=== PATIENT | female | born 2000 | race African-American/Black ===

== ENCOUNTER 2025-05-24 09:07 | Emergency (ER) | payer OTHER ==
[~2025-05-24] VITALS: Ht 160 cm; Wt 79.2 kg
[2025-05-24 09:11] VITALS: TEMP 97.4
[2025-05-24] MEDS ORDERED: AZIT500T5 (09:16)
[2025-05-24 10:01] VITALS: BP 125/77; O2SAT 99
[2025-05-24] MEDS ORDERED: DOXY100C3 PO (11:13)
== END 2025-05-24 11:29 | disposition home or self-care (01) ==
LOC: M ED 09:07
DX: N34.1 Nonspecific urethritis (principal); Z79.2 Long term (current) use of antibiotics; Z88.0 Allergy status to penicillin

== ENCOUNTER 2025-06-24 07:44 | Emergency (ER) | payer OTHER ==
[~2025-06-24] VITALS: Ht 160 cm; Wt 78.8 kg
[~2025-06-24 07:44] MED LIST: AZIT500T5; DOXY100C3 PO
[2025-06-24 07:47] VITALS: TEMP 97.6
[2025-06-24 09:29] VITALS: O2SAT 100
[2025-06-24 09:30] VITALS: BP 118/75
[2025-06-24] MEDS ORDERED: DEBR6.5S4 AD (09:30)
== END 2025-06-24 10:16 | disposition home or self-care (01) ==
LOC: M ED 07:44
DX: H61.21 Impacted cerumen, right ear (principal); Z88.0 Allergy status to penicillin; Z79.899 Other long term (current) drug therapy

== ENCOUNTER 2025-07-18 05:31 | Emergency (ER) | payer OTHER ==
[~2025-07-18] VITALS: Ht 160 cm; Wt 76.4 kg
[~2025-07-18 05:31] MED LIST changes: +DEBR6.5S4 AD
[2025-07-18] MEDS ORDERED: AZIT-12 PO (06:53)
[2025-07-18 06:55] VITALS: BP 100/65; TEMP 97.2; O2SAT 99
== END 2025-07-18 07:00 | disposition home or self-care (01) ==
LOC: M ED 05:31
DX: H65.01 Acute serous otitis media, right ear (principal); Z79.2 Long term (current) use of antibiotics; Z79.899 Other long term (current) drug therapy; Z88.0 Allergy status to penicillin

== ENCOUNTER 2025-08-06 06:18 | Observation (INO) | payer OTHER ==
[~2025-08-06] VITALS: Ht 160 cm; Wt 75.8 kg
[2025-08-06] MEDS: ceFAZolin SOD 2 GM IV ONCE IV ONE (06:00)
[~2025-08-06 06:18] MED LIST changes: +AZIT-12 PO; +CLINDAMYCIN 900 MG in IV 1 EA IV ONE; +IBUP200C27 PO; +VITA100093 PO; +VITA1TAB61 PO; +[UNRECOGNIZED DRUG - CODE] PO
[2025-08-06] MEDS ORDERED: dexmedeTOMIDine (4 MCG/ML) 200 MCG/50 ML BTL As Ordered ONE (06:54)
[2025-08-06] MEDS ORDERED: dexAMETHasone 4 MG/ML 1 ML VIAL As Ordered ONE (06:54)
[2025-08-06] MEDS ORDERED: ONDANSETRON 4MG 2ML VIAL As Ordered ONE (06:54)
[2025-08-06] MEDS ORDERED: ROCURONIUM BROMIDE 50MG/5ML VIAL As Ordered ONE (06:54)
[2025-08-06] MEDS ORDERED: LIDOCAINE 2% 100 MG/5 ML SDV (FOR ANES.) As Ordered ONE (06:54)
[2025-08-06] MEDS ORDERED: SUGAMMADEX SODIUM 500 MG/5 ML VIAL As Ordered ONE (06:54)
[2025-08-06] MEDS ORDERED: MIDAZOLAM INJ 2 MG/2 ML VIAL As Ordered ONE (06:55)
[2025-08-06] MEDS: FAMOTIDINE 20 MG/2 ML VIAL IVP ONE (07:00)
[2025-08-06] MEDS: SCOPOLAMINE 1MG TRANSDERMAL PATCH TOP ONE (07:06)
[2025-08-06] MEDS: CLINDAMYCIN 900 MG/50 ML PREMIX BAG As Ordered ONE (07:59)
[2025-08-06] MEDS ORDERED: ACETAMINOPHEN 1000MG/100ML IV BAG As Ordered ONE (08:02)
[2025-08-06] MEDS: HEPARIN SOD 5000 UNITS/ML 1 ML VIAL/SYRINGE SQ ONE (08:10)
[2025-08-06] MEDS ORDERED: HYDROmorphone HCL 2 MG/ML 1 ML VIAL As Ordered ONE (09:03)
[2025-08-06] MEDS: GENTAMICIN SULF 80 MG/2 ML VIAL As Ordered ONE (09:11)
[2025-08-06] MEDS ORDERED: ACETAMINOPHEN 325 MG TAB PO PRN (12:45)
[2025-08-06] MEDS: HYDROMORPHONE HCL 0.5 MG/0.5 ML SYRINGE IV PRN (12:55)
[2025-08-06 13:47] VITALS: BP_SYST 115; BP_SYST 116; BP_DIAS 65; BP_DIAS 66; TEMP 98.1; O2SAT 100
[2025-08-06 14:00] VITALS: BP 115/65; TEMP 98.1; O2SAT 99
[2025-08-06] MEDS: ONDANSETRON 4MG 2ML VIAL IV PRN (14:27)
[2025-08-06] MEDS: MORPHINE 4 MG/ML 1 ML VIAL IV PRN (14:29)
[2025-08-06 14:30] VITALS: BP 118/68; TEMP 98.1; O2SAT 98
[2025-08-06] MEDS: LR 1,000 ML IV SCH (14:35)
[2025-08-06] MEDS: CLINDAMYCIN 900 MG in IV 1 EA IV ONE (14:38)
[2025-08-06] MEDS ORDERED: HOME MED LIST COMPLETE! XX SCH (14:40)
[2025-08-06 15:30] VITALS: BP 118/68; TEMP 98.1; O2SAT 98
[2025-08-06 16:30] VITALS: BP 120/84; TEMP 98.2; O2SAT 98
[2025-08-06] MEDS: PERCOCET 5MG/325MG TAB PO PRN (17:34)
[2025-08-06 21:24] VITALS: BP 118/56; TEMP 97.7; O2SAT 98
[2025-08-07 00:12] VITALS: BP 116/57; TEMP 98.4; O2SAT 97
[2025-08-07] MEDS: traMADol 50 MG TAB PO PRN (06:18)
[2025-08-07 06:23] LABS: PLATELET COUNT, AUTOMATED 205 10^3/uL (150-450)
[2025-08-07 06:41] VITALS: BP 109/74; TEMP 98.1; O2SAT 98
[2025-08-07 06:45] LABS: CALCIUM LEVEL 8.1 MG/DL (8.5-10.1); CARBON DIOXIDE LEVEL 25.0 MMOL/L (20-31); CHLORIDE LEVEL 107.0 MMOL/L (98-107); CREATININE FOR GFR 0.99 MG/DL (0.55-1.30); GLOMERULAR FILTRATION RATE 80.7 (>60); POTASSIUM SERUM 3.7 MMOL/L (3.5-5.1); SODIUM LEVEL 141.0 MMOL/L (136-145)
[2025-08-07 07:18] VITALS: O2SAT 96
[2025-08-07] MEDS ORDERED: PERCOCET PO (13:11)
[2025-08-07] MEDS ORDERED: ONDA-83 PO (13:44)
== END 2025-08-07 15:15 | disposition home or self-care (01) ==
LOC: M SDC 06:18 → EDUNIT# 07:30 → M RR INP 12:45 → M MS5PR 13:47
PROVIDERS: ADMIT Plastic Surgery Surgery of the Hand; ATTEND Plastic Surgery Surgery of the Hand
DX: N62 Hypertrophy of breast (principal); Z88.0 Allergy status to penicillin; Z79.899 Other long term (current) drug therapy
CPT/HCPCS: 19318; 36415; 76642; 80048; 81025; 85027; 88305; 96361; 96365; 96375; J0131; J0665; J0666; J0737; J1100; J1171; J1580; J2250; J2405; J3010